=== PATIENT | female | born 1965 | race African-American/Black ===

== ENCOUNTER 2020-03-08 11:16 | Inpatient (IN) ==
[2020-03-08] MEDS ORDERED: SODIUM CHLORIDE 0.9% 1,000 ML IV SCH (13:30)
[2020-03-08] MEDS ORDERED: CEFUROXIME INJ 1,500 MG in SODIUM CHLORIDE 0.9% 100 ML IV ONE (13:30)
[2020-03-08] MEDS ORDERED: GLUCAGON 1 MG VIAL IM PRN (13:30)
[2020-03-08] MEDS ORDERED: DEXTROSE 50% 25 GM/50 ML VIAL IV PRN (13:30)
[2020-03-08] MEDS ORDERED: CLORAZEPATE 3.75 MG TABLET PO PRN (13:53)
[2020-03-08] MEDS ORDERED: ZALEPLON 5 MG CAPSULE PO PRN (13:53)
[2020-03-08] MEDS ORDERED: oxyCODONE/ACETAMINOPHEN 5-325 MG TABLET PO PRN (13:54)
[2020-03-08] MEDS ORDERED: MORPHINE 4 MG/1 ML VIAL IV PRN (13:54)
[2020-03-08] MEDS ORDERED: hydrALAZINE 20 MG/1 ML VIAL IV PRN (13:55)
[2020-03-08] MEDS ORDERED: NITROGLYCERIN SL 0.4 MG TABLET SL PRN (13:55)
[2020-03-08 15:49] LABS: Basophils % 0.9 % (0.0-0.8); Eosinophils # 0.2 10*3/uL (0.0-0.87); Eosinophils % 4.3 % (0.00-10.9); Hematocrit 38.3 VOL% (35.7-47.0); Hemoglobin 12.3 GM/DL (12.0-16.0); Immature Granulocytes % 0.7 %; Immature Granulocytes Absolute 0.03 #; Lymphocytes # 1.6 10*3/uL (1.4-4.0); Lymphocytes % 36.1 % (21.3-54.2); Mean Corpuscular HGB Conc 32.1 GM/DL (32-36); Mean Corpuscular Volume 93.6 FL (87-102); Mean Platelet Volume 9.7 FL (9.6-12.0); Platelet Count 299 T/CUMM (130-400); Red Blood Count 4.09 MC/CUMM (3.8-5.5); Red Cell Distribution Width 14.7 % (9.3-17.3); White Blood Count 4.5 T/CUMM (4-12)
[2020-03-08 16:02] LABS: Alanine Aminotransferase 32 U/L (13-56); Albumin 3.4 G/DL (3.4-5.0); Alkaline Phosphatase 89 U/L (45-117); Aspartate Amino Transferase 24 U/L (0-37); Bilirubin,Total < 0.39 MG/DL (0.2-1.0); Blood Urea Nitrogen 21 MG/DL (7-18); Calcium 9.2 MG/DL (8.5-10.1); Estimated Glom Filtration Rate 77 ML/MIN; Glucose 114 MG/DL (74-106); Osmolality,Calculated 282.4 MOS/KG (273-304); Total Protein 7.4 G/DL (6.4-8.3)
[2020-03-08] MEDS: CHLORHEXIDINE 4% SOLN 118 ML BOTTLE TOP SCH ×2 (16:36→20:38)
[2020-03-08 16:46] LABS: ABG Base Excess 4.5 MMOL/L (-2.5-2.5); ABG HCO3 28.4 MMOL/L (20-26); ABG Oxygen Saturation 97.7 % (95-100); ABG PCO2 40.3 MM HG (35-48); ABG PO2 89.9 MM HG (80-95); ABG TCO2 25.2 MMOL/L (23-27); Allen Test Positive; Pt O2 Delivery Device Room Air
[2020-03-08] MEDS: CHLORHEXIDINE 0.12% ORAL RINSE 60 ML BOTTLE SWISH/SPIT SCH (20:18)
[2020-03-09] MEDS: CHLORHEXIDINE 4% SOLN 118 ML BOTTLE TOP SCH ×2 (04:21→10:43)
[2020-03-09] MEDS ORDERED: PAPAVERINE 60 MG/2 ML VIAL ONE (04:22)
[2020-03-09] MEDS ORDERED: VANCOMYCIN 1,000 MG VIAL ONE (04:23)
[2020-03-09] MEDS ORDERED: VANCOMYCIN 500 MG VIAL ONE (04:23)
[2020-03-09] MEDS ORDERED: CALCIUM CHLORIDE 1,000 MG/10 ML VIAL IV ONE (05:57)
[2020-03-09] MEDS ORDERED: MIDAZOLAM 10 MG/2 ML VIAL ONE (05:57)
[2020-03-09] MEDS ORDERED: VECURONIUM 10 MG VIAL IV ONE (05:58)
[2020-03-09] MEDS ORDERED: AMINOCAPROIC ACID 5,000 MG/20 ML VIAL ONE (05:58)
[2020-03-09] MEDS ORDERED: SUFentanil 250 MCG/5 ML AMP ONE (05:58)
[2020-03-09] MEDS ORDERED: MINERAL OIL/PETROLATUM OPH OINT 3.5 GM TUBE ONE (05:58)
[2020-03-09] MEDS ORDERED: DIAZEPAM 5 MG TABLET PO ONE (06:00)
[2020-03-09] MEDS ORDERED: CEFUROXIME INJ 1,500 MG in SODIUM CHLORIDE 0.9% 100 ML IV ONE (06:00)
[2020-03-09] MEDS ORDERED: FAMOTIDINE 20 MG TABLET PO ONE (06:00)
[2020-03-09 07:45] LABS: ABG Base Excess 1.7 MMOL/L (-2.5-2.5); ABG PCO2 42.1 MM HG (35-48); ABG PH 7.408 (7.35-7.45); ABG TCO2 23.8 MMOL/L (23-27); Glucose Heart Surgery 128 MG/DL (74-106); Ionized Calcium Arterial 1.14 MMOL/L (1.21-1.46); PCO2 Patient Temp Arterial 42.1 MMHG; PH Patient Temp Arterial 7.408; Patient Temperature 37 CELCIUS; Potassium Heart/CVR 3.5 MMOL/L (3.5-5.1); Sodium Heart/CVR 139 MMOL/L (135-145)
[2020-03-09] MEDS ORDERED: PHENYLEPHRINE DRIP 40 MG/250 ML PREMIX IV ONE (08:01)
[2020-03-09 09:02] LABS: Apearance,Urine CLEAR (Clear); Bilirubin,Urine Negative (Negative); Blood, Urine Negative (Negative); Glucose,Urine (UA) Negative (Negative); Ketones,Urine Negative (Negative); Mucus,Urine Occasional /LPF (Occasional); Nitrite,Urine Negative (Negative); Protein,Urine Negative; RBC,Urine 4 /HPF (0-4); Urine Color Yellow (Yellow); Urine Specific Gravity 1.016 (1.001-1.035); Urine Urobilinogen < 2.0 EU/DL (0.2-1.0)
[2020-03-09 09:03] LABS: Hemoglobin Heart Surgery 7.2 G/DL (12.0-16.0); PCO2 Patient Temp Venous 33.5 MM HG; PH Patient Temp Venous 7.501; PO2 Patient Temp Venous 35.4 MM HG; VBG Base Excess 2.3 MEQ/L (0-4); VBG HCO3 26.1 MEQ/L (24-28); VBG Oxygen Saturation 76.9 %; VBG PCO2 36.6 MMHG (41-51); VBG PH 7.471; VBG PO2 40.8 MMHG (17-40)
[2020-03-09] MEDS ORDERED: FAMOTIDINE 20 MG/2 ML VIAL IV ONE (09:30)
[2020-03-09] MEDS ORDERED: diphenhydrAMINE 50 MG/1 ML VIAL ONE (09:30)
[2020-03-09 09:37] LABS: Hemoglobin Heart Surgery 8.1 G/DL (12.0-16.0); PCO2 Patient Temp Venous 36.6 MM HG; PH Patient Temp Venous 7.455; PO2 Patient Temp Venous 38.5 MM HG; VBG Base Excess 1.1 MEQ/L (0-4); VBG HCO3 25.6 MEQ/L (24-28); VBG Oxygen Saturation 79.2 %; VBG PCO2 39.9 MMHG (41-51); VBG PH 7.425; VBG PO2 44.3 MMHG (17-40)
[2020-03-09 10:01] LABS: ABG Base Excess -0.7 MMOL/L (-2.5-2.5); ABG HCO3 23.8 MMOL/L (20-26); ABG PCO2 37.8 MM HG (35-48); ABG PH 7.406 (7.35-7.45); Glucose Heart Surgery 232 MG/DL (74-106); Hematocrit Heart Surgery 26.2 PERCENT (37-47); Hemoglobin Heart Surgery 8.4 G/DL (12.0-16.0); Ionized Calcium Arterial 1.45 MMOL/L (1.21-1.46); PCO2 Patient Temp Arterial 37.8 MMHG; PH Patient Temp Arterial 7.406; Patient Temperature 37 CELCIUS; Potassium Heart/CVR 3.3 MMOL/L (3.5-5.1); Sodium Heart/CVR 134 MMOL/L (135-145)
[2020-03-09] MEDS ORDERED: SODIUM BICARBONATE 50 MEQ/50 ML VIAL IV ONE (10:03)
[2020-03-09] MEDS ORDERED: DEXTROSE 5% KCL 20 MEQ 20 MEQ/1,000 ML BAG IV ONE (10:03)
[2020-03-09] MEDS ORDERED: HEPARIN 10,000 UNIT/10 ML VIAL ONE (10:03)
[2020-03-09] MEDS ORDERED: PROTAMINE SULFATE 250 MG/25 ML VIAL IV ONE (10:03)
[2020-03-09] MEDS ORDERED: MANNITOL 100 GM/500 ML BAG IV ONE (10:03)
[2020-03-09] MEDS ORDERED: MAGNESIUM SULFATE 5 GM/10 ML VIAL IV ONE (10:03)
[2020-03-09] MEDS ORDERED: LIDOCAINE 2% 5 ML VIAL ONE ×2 (10:03→10:40)
[2020-03-09] MEDS ORDERED: ALBUMIN 25% 25 GM/100 ML VIAL IV ONE (10:03)
[2020-03-09] MEDS ORDERED: FUROSEMIDE 20 MG/2 ML VIAL ONE (10:04)
[2020-03-09] MEDS ORDERED: methylPREDNISolone SOD SUC 1,000 MG/8 ML VIAL ONE (10:04)
[2020-03-09] MEDS ORDERED: PROTAMINE SULFATE 50 MG/5 ML VIAL IV ONE (10:04)
[2020-03-09] MEDS ORDERED: MAGNESIUM SULF RIDER 2 GM in PREMIX 1 EACH IV PRN (10:38)
[2020-03-09] MEDS ORDERED: INSULIN REGULAR DRIP 100 ML IV SCH (10:38)
[2020-03-09] MEDS ORDERED: ONDANSETRON 4 MG/2 ML VIAL IV PRN (10:38)
[2020-03-09] MEDS ORDERED: MORPHINE 4 MG/1 ML VIAL IV PRN (10:38)
[2020-03-09] MEDS ORDERED: ALBUMIN 5% 12.5 GM in PREMIX 1 EACH IV PRN (10:38)
[2020-03-09] MEDS ORDERED: INSULIN REGULAR 100 UNIT/ML IV ONE (10:38)
[2020-03-09] MEDS ORDERED: MIDAZOLAM 10 MG/2 ML VIAL IV PRN (10:38)
[2020-03-09] MEDS ORDERED: PHENYLEPHRINE DRIP 40 MG/250 ML PREMIX IV PRN (10:38)
[2020-03-09] MEDS ORDERED: SODIUM CHLORIDE 0.45% 1,000 ML IV SCH ×2 (10:38)
[2020-03-09] MEDS ORDERED: MIDAZOLAM 2 MG/2 ML VIAL IV PRN (10:38)
[2020-03-09] MEDS ORDERED: CHLORHEXIDINE 4% SOLN 118 ML BOTTLE TOP PRN (10:38)
[2020-03-09] MEDS ORDERED: NITROPRUSSIDE 100 MG in DEXTROSE 5% 250 ML IV PRN (10:38)
[2020-03-09] MEDS ORDERED: LACTATED RINGERS 250 ML IV PRN (10:38)
[2020-03-09] MEDS ORDERED: MAGNESIUM SULF RIDER 4 GM in PREMIX 1 EACH IV PRN (10:38)
[2020-03-09] MEDS ORDERED: DEXTROSE 10% 250 ML BAG IV PRN ×2 (10:38)
[2020-03-09] MEDS ORDERED: CALCIUM CHLORIDE 1,000 MG/10 ML SYRINGE IV PRN (10:38)
[2020-03-09] MEDS ORDERED: VECURONIUM 10 MG VIAL IV PRN ×2 (10:38)
[2020-03-09] MEDS ORDERED: SODIUM CHLORIDE 0.9% 250 ML IV ONE (10:40)
[2020-03-09] MEDS ORDERED: SEVOFLURANE 1 UNIT/15 MINUTE INH ONE (10:40)
[2020-03-09] MEDS ORDERED: SODIUM CHLORIDE 0.9% 100 ML IV ONE (10:40)
[2020-03-09] MEDS ORDERED: ETOMIDATE 40 MG/20 ML VIAL IV ONE (10:40)
[2020-03-09] MEDS ORDERED: SODIUM CHLORIDE 0.9% 1,000 ML IV ONE (10:40)
[2020-03-09] MEDS ORDERED: HEPARIN/NACL 0.9% 2 UNITS/ML 500 ML IV ONE (10:40)
[2020-03-09] MEDS ORDERED: PHENYLEPHRINE DRIP 20 MG/250 ML PREMIX IV ONE (10:40)
[2020-03-09] MEDS ORDERED: IBUPROFEN 100 MG/5 ML UDCUP PO PRN (11:09)
[2020-03-09 11:13] LABS: ABG Base Excess -0.8 MMOL/L (-2.5-2.5); ABG HCO3 23.8 MMOL/L (20-26); ABG Oxygen Saturation 98.9 % (95-100); ABG PCO2 46.6 MM HG (35-48); ABG PH 7.341 (7.35-7.45); ABG TCO2 23.3 MMOL/L (23-27); Glucose Heart Surgery 169 MG/DL (74-106); Hematocrit Heart Surgery 28.7 PERCENT (37-47); Hemoglobin Heart Surgery 9.3 G/DL (12.0-16.0); Potassium Heart/CVR 3.6 MMOL/L (3.5-5.1)
[2020-03-09] MEDS: POTASSIUM CHLORIDE RIDER 20 MEQ in PREMIX 1 EACH IV PRN ×3 (11:21→22:13)
[2020-03-09 11:25] LABS: Basophils % 0.3 % (0.0-0.8); Eosinophils # 0.1 10*3/uL (0.0-0.87); Immature Granulocytes % 1.2 %; Immature Granulocytes Absolute 0.11 #; Lymphocytes # 1.6 10*3/uL (1.4-4.0); Lymphocytes % 17.1 % (21.3-54.2); Mean Corpuscular HGB Conc 32.9 GM/DL (32-36); Mean Corpuscular Volume 92.1 FL (87-102); Mean Platelet Volume 9.8 FL (9.6-12.0); Monocytes % 4.8 % (1.7-12.7); Neutrophils % 75.6 % (38.7-73.9); Red Cell Distribution Width 14.6 % (9.3-17.3)
[2020-03-09 11:27] LABS: Hemoglobin 9.2 GM/DL (12.0-16.0); Platelet Count 222 T/CUMM (130-400); Red Blood Count 3.04 MC/CUMM (3.8-5.5); White Blood Count 9.5 T/CUMM (4-12)
[2020-03-09 11:29] LABS: INR 1.1; PT Patient Result 11.7 SECS (9.8-11.9); Partial Thromboplastin Time 28.2 SECS (23.9-33.8)
[2020-03-09 11:40] LABS: CKMB % 6.2 %
[2020-03-09 11:44] LABS: Albumin 2.8 G/DL (3.4-5.0); Bilirubin,Total 0.7 MG/DL (0.2-1.0); Calcium 9.6 MG/DL (8.5-10.1); Osmolality,Calculated 279.7 MOS/KG (273-304); Total Protein 5.6 G/DL (6.4-8.3)
[2020-03-09 11:46] LABS: Troponin I 5.26 NG/ML (0.00-0.045)
[2020-03-09] MEDS: POTASSIUM CHLORIDE RIDER 10 MEQ in PREMIX 1 EACH IV PRN ×2 (12:43→19:15)
[2020-03-09] MEDS: LACTATED RINGERS 1,000 ML IV PRN ×4 (13:01→18:40)
[2020-03-09 13:26] LABS: ABG HCO3 23.6 MMOL/L (20-26); ABG Oxygen Saturation 98.8 % (95-100); ABG PCO2 48.8 MM HG (35-48); ABG PH 7.327 (7.35-7.45); ABG TCO2 22.9 MMOL/L (23-27); Glucose Heart Surgery 121 MG/DL (74-106); Hematocrit Heart Surgery 36.1 PERCENT (37-47); Hemoglobin Heart Surgery 11.7 G/DL (12.0-16.0); Potassium Heart/CVR 3.9 MMOL/L (3.5-5.1)
[2020-03-09 14:31] LABS: ABG Base Excess -0.5 MMOL/L (-2.5-2.5); ABG Oxygen Saturation 98.1 % (95-100); ABG PCO2 42.2 MM HG (35-48); ABG PH 7.375 (7.35-7.45); ABG TCO2 22.1 MMOL/L (23-27); Glucose Heart Surgery 122 MG/DL (74-106); Hematocrit Heart Surgery 35.4 PERCENT (37-47); Hemoglobin Heart Surgery 11.5 G/DL (12.0-16.0); Potassium Heart/CVR 3.7 MMOL/L (3.5-5.1)
[2020-03-09] MEDS: CHLORHEXIDINE 0.12% ORAL RINSE 60 ML BOTTLE SWISH/SPIT SCH ×2 (14:45→22:20)
[2020-03-09 15:31] LABS: ABG Base Excess -0.5 MMOL/L (-2.5-2.5); ABG Oxygen Saturation 98.2 % (95-100); ABG PCO2 40.7 MM HG (35-48); ABG PH 7.386 (7.35-7.45); ABG TCO2 21.9 MMOL/L (23-27); Glucose Heart Surgery 134 MG/DL (74-106); Hematocrit Heart Surgery 34.2 PERCENT (37-47); Hemoglobin Heart Surgery 11.1 G/DL (12.0-16.0); Potassium Heart/CVR 4.1 MMOL/L (3.5-5.1)
[2020-03-09] MEDS: MORPHINE 10 MG/1 ML VIAL IV PRN ×2 (16:55→19:35)
[2020-03-09 18:24] LABS: ABG Base Excess -1.5 MMOL/L (-2.5-2.5); ABG HCO3 23.2 MMOL/L (20-26); ABG Oxygen Saturation 98.8 % (95-100); ABG PCO2 40.3 MM HG (35-48); ABG PH 7.375 (7.35-7.45); ABG TCO2 21.3 MMOL/L (23-27); Glucose Heart Surgery 148 MG/DL (74-106); Hematocrit Heart Surgery 33.3 PERCENT (37-47); Hemoglobin Heart Surgery 10.8 G/DL (12.0-16.0); Potassium Heart/CVR 3.8 MMOL/L (3.5-5.1)
[2020-03-09] MEDS: INSULIN REGULAR 100 UNIT/ML IV PRN (18:31)
[2020-03-09] MEDS: CEFUROXIME INJ 1,500 MG in SYRINGE 1 EACH IV SCH (18:33)
[2020-03-09] MEDS ORDERED: FUROSEMIDE 40 MG/4 ML VIAL IV PRN (19:42)
[2020-03-09 22:06] LABS: ABG Base Excess -2.7 MMOL/L (-2.5-2.5); ABG HCO3 22.1 MMOL/L (20-26); ABG Oxygen Saturation 98.1 % (95-100); ABG PCO2 38.4 MM HG (35-48); ABG TCO2 19.9 MMOL/L (23-27); Glucose Heart Surgery 146 MG/DL (74-106); Hematocrit Heart Surgery 34.4 PERCENT (37-47); Hemoglobin Heart Surgery 11.1 G/DL (12.0-16.0)
[2020-03-10] MEDS: MORPHINE 10 MG/1 ML VIAL IV PRN ×2 (00:01→00:05)
[2020-03-10] MEDS: INSULIN REGULAR 100 UNIT/ML IV PRN (02:28)
[2020-03-10 02:29] LABS: ABG Base Excess -1.8 MMOL/L (-2.5-2.5); ABG HCO3 22.9 MMOL/L (20-26); ABG Oxygen Saturation 98.4 % (95-100); ABG PCO2 36.6 MM HG (35-48); ABG PH 7.399 (7.35-7.45); ABG TCO2 20.2 MMOL/L (23-27); Glucose Heart Surgery 154 MG/DL (74-106); Hematocrit Heart Surgery 35.4 PERCENT (37-47); Hemoglobin Heart Surgery 11.5 G/DL (12.0-16.0); Potassium Heart/CVR 3.8 MMOL/L (3.5-5.1)
[2020-03-10] MEDS ORDERED: NITROPRUSSIDE 50 MG/2 ML VIAL ONE (02:34)
[2020-03-10] MEDS: POTASSIUM CHLORIDE RIDER 20 MEQ in PREMIX 1 EACH IV PRN (03:00)
[2020-03-10] MEDS ORDERED: hydrALAZINE 20 MG/1 ML VIAL IV PRN (03:30)
[2020-03-10] MEDS ORDERED: carvediloL 25 MG TABLET PO ONE (03:30)
[2020-03-10] MEDS: POTASSIUM CHLORIDE RIDER 10 MEQ in PREMIX 1 EACH IV PRN (03:33)
[2020-03-10] MEDS: KETOROLAC 15 MG/1 ML VIAL IV PRN ×3 (03:50→20:04)
[2020-03-10 04:14] LABS: ABG Base Excess -1.8 MMOL/L (-2.5-2.5); ABG HCO3 22.9 MMOL/L (20-26); ABG Oxygen Saturation 98.8 % (95-100); ABG PCO2 33.4 MM HG (35-48); ABG PH 7.425 (7.35-7.45); ABG TCO2 19.6 MMOL/L (23-27); Glucose Heart Surgery 149 MG/DL (74-106); Hematocrit Heart Surgery 34.6 PERCENT (37-47); Hemoglobin Heart Surgery 11.2 G/DL (12.0-16.0); Potassium Heart/CVR 4.5 MMOL/L (3.5-5.1)
[2020-03-10 04:40] LABS: Basophils % 0.2 % (0.0-0.8); Hematocrit 34.1 VOL% (35.7-47.0); Immature Granulocytes % 0.6 %; Immature Granulocytes Absolute 0.08 #; Lymphocytes # 1.1 10*3/uL (1.4-4.0); Lymphocytes % 8.2 % (21.3-54.2); Mean Corpuscular HGB Conc 33.1 GM/DL (32-36); Monocytes % 4.2 % (1.7-12.7); Neutrophils % 86.8 % (38.7-73.9); Platelet Count 238 T/CUMM (130-400); Red Cell Distribution Width 14.6 % (9.3-17.3)
[2020-03-10 04:43] LABS: White Blood Count 13.2 T/CUMM (4-12)
[2020-03-10 04:44] LABS: Hemoglobin 11.3 GM/DL (12.0-16.0); Red Blood Count 3.79 MC/CUMM (3.8-5.5)
[2020-03-10 05:08] LABS: Albumin 3.1 G/DL (3.4-5.0); Bilirubin,Direct 0.11 MG/DL (0.0-0.20); Bilirubin,Total 0.6 MG/DL (0.2-1.0); Calcium 8.8 MG/DL (8.5-10.1); Osmolality,Calculated 281.5 MOS/KG (273-304); Total Protein 6.2 G/DL (6.4-8.3)
[2020-03-10 05:11] LABS: CKMB % 10.7 %
[2020-03-10 05:20] LABS: Troponin I 11.7 NG/ML (0.00-0.045)
[2020-03-10] MEDS: CEFUROXIME INJ 1,500 MG in SYRINGE 1 EACH IV SCH ×2 (05:44→17:56)
[2020-03-10 06:42] LABS: ABG HCO3 23.5 MMOL/L (20-26); ABG Oxygen Saturation 98.2 % (95-100); ABG PCO2 35.6 MM HG (35-48); ABG PH 7.418 (7.35-7.45); ABG TCO2 20.6 MMOL/L (23-27); Glucose Heart Surgery 155 MG/DL (74-106); Hematocrit Heart Surgery 34.4 PERCENT (37-47); Hemoglobin Heart Surgery 11.1 G/DL (12.0-16.0)
[2020-03-10] MEDS ORDERED: SODIUM CHLOR 0.45% KCL 20 MEQ 20 MEQ/1,000 ML BAG IV SCH ×2 (07:30→11:19)
[2020-03-10 07:36] LABS: ABG Base Excess -1.1 MMOL/L (-2.5-2.5); ABG HCO3 23.5 MMOL/L (20-26); ABG Oxygen Saturation 95.8 % (95-100); ABG PCO2 35.7 MM HG (35-48); ABG PH 7.417 (7.35-7.45); ABG PO2 77.7 MM HG (80-95); ABG TCO2 20.6 MMOL/L (23-27); Glucose Heart Surgery 142 MG/DL (74-106); Hematocrit Heart Surgery 34.6 PERCENT (37-47); Hemoglobin Heart Surgery 11.2 G/DL (12.0-16.0)
[2020-03-10] MEDS ORDERED: INSULIN REGULAR 100 UNIT/ML SUBCUT SCH (08:00)
[2020-03-10] MEDS: carvediloL 25 MG TABLET PO SCH ×2 (08:24→20:05)
[2020-03-10] MEDS: CHLORHEXIDINE 0.12% ORAL RINSE 60 ML BOTTLE SWISH/SPIT SCH ×3 (08:24→20:12)
[2020-03-10] MEDS ORDERED: ALUMINUM/MAGNES/SIMETH MAX STR 30 ML UDCUP PO PRN (11:19)
[2020-03-10] MEDS ORDERED: ZALEPLON 5 MG CAPSULE PO PRN (11:19)
[2020-03-10] MEDS ORDERED: GLUCAGON 1 MG VIAL IM PRN (11:19)
[2020-03-10] MEDS ORDERED: MAGNESIUM SULF RIDER 2 GM in PREMIX 1 EACH IV PRN (11:19)
[2020-03-10] MEDS ORDERED: MAGNESIUM SULF RIDER 4 GM in PREMIX 1 EACH IV PRN (11:19)
[2020-03-10] MEDS ORDERED: MAGNESIUM HYDROXIDE SUSP 30 ML UDCUP PO PRN (11:19)
[2020-03-10] MEDS ORDERED: DEXTROSE 50% 25 GM/50 ML VIAL IV PRN (11:19)
[2020-03-10 12:17] LABS: CKMB % 10.1 %
[2020-03-10 12:19] LABS: Troponin I 19.1 NG/ML (0.00-0.045)
[2020-03-10] MEDS: PANTOPRAZOLE 40 MG TABLET PO SCH (12:25)
[2020-03-10] MEDS: DOCUSATE SODIUM 100 MG CAPSULE PO SCH (12:25)
[2020-03-10] MEDS: FERROUS SULFATE 325 MG TABLET PO SCH (12:25)
[2020-03-10] MEDS: ASPIRIN EC 325 MG TABLET PO SCH (12:25)
[2020-03-10] MEDS: INSULIN REGULAR 100 UNIT/ML SUBCUT SCH ×2 (16:14→22:34)
[2020-03-10] MEDS ORDERED: AMIODARONE INJ 150 MG in DEXTROSE 5% 100 ML IV ONE (17:25)
[2020-03-10] MEDS ORDERED: DILTIAZEM 50 MG/10 ML VIAL IV ONE (17:26)
[2020-03-10] MEDS ORDERED: dilTIAZem Drip 125 MG/125 ML PREMIX IV SCH (17:30)
[2020-03-10] MEDS ORDERED: AMIODARONE INJ 450 MG in DEXTROSE 5% 241 ML IV SCH ×2 (17:30→23:30)
[2020-03-10] MEDS: ATORVASTATIN 40 MG TABLET PO SCH (20:06)
[2020-03-10] MEDS: HYDROmorphone 2 MG TABLET PO PRN (20:09)
[2020-03-11] MEDS: INSULIN REGULAR 100 UNIT/ML SUBCUT SCH ×6 (00:51→20:59)
[2020-03-11] MEDS: KETOROLAC 15 MG/1 ML VIAL IV PRN (05:41)
[2020-03-11] MEDS ORDERED: FUROSEMIDE 40 MG/4 ML VIAL IV ONE (06:00)
[2020-03-11 06:46] LABS: Basophils % 0.1 % (0.0-0.8); Hematocrit 31.2 VOL% (35.7-47.0); Hemoglobin 10.2 GM/DL (12.0-16.0); Immature Granulocytes % 0.7 %; Immature Granulocytes Absolute 0.12 #; Lymphocytes # 1.1 10*3/uL (1.4-4.0); Lymphocytes % 6.6 % (21.3-54.2); Mean Corpuscular HGB Conc 32.7 GM/DL (32-36); Mean Corpuscular Volume 91.2 FL (87-102); Mean Platelet Volume 10.4 FL (9.6-12.0); Monocytes % 6.2 % (1.7-12.7); Neutrophils % 86.4 % (38.7-73.9); Platelet Count 229 T/CUMM (130-400); Red Blood Count 3.42 MC/CUMM (3.8-5.5); Red Cell Distribution Width 15.4 % (9.3-17.3); White Blood Count 17.2 T/CUMM (4-12)
[2020-03-11 06:52] LABS: Albumin 2.8 G/DL (3.4-5.0); Bilirubin,Direct 0.12 MG/DL (0.0-0.20); Bilirubin,Total 0.8 MG/DL (0.2-1.0); Calcium 8.5 MG/DL (8.5-10.1); Osmolality,Calculated 280.8 MOS/KG (273-304); Total Protein 6.2 G/DL (6.4-8.3)
[2020-03-11 06:55] LABS: Albumin 2.9 G/DL (3.4-5.0); Bilirubin,Direct 0.15 MG/DL (0.0-0.20); Bilirubin,Indirect 2.3 MG/DL (0.0-1.0); Bilirubin,Total 2.4 MG/DL (0.2-1.0); CKMB % 6.3 %; Total Protein 5.9 G/DL (6.4-8.3)
[2020-03-11 06:57] LABS: Troponin I 28.7 NG/ML (0.00-0.045)
[2020-03-11] MEDS: PANTOPRAZOLE 40 MG TABLET PO SCH (08:59)
[2020-03-11] MEDS: ASPIRIN EC 325 MG TABLET PO SCH (08:59)
[2020-03-11] MEDS: DOCUSATE SODIUM 100 MG CAPSULE PO SCH (08:59)
[2020-03-11] MEDS: FERROUS SULFATE 325 MG TABLET PO SCH (08:59)
[2020-03-11] MEDS: amLODIPine 10 MG TABLET PO SCH (08:59)
[2020-03-11] MEDS: ATORVASTATIN 40 MG TABLET PO SCH (08:59)
[2020-03-11] MEDS: carvediloL 25 MG TABLET PO SCH ×2 (08:59→21:00)
[2020-03-11] MEDS: hydroCHLOROthiazide 25 MG TABLET PO SCH (08:59)
[2020-03-11] MEDS: CHLORHEXIDINE 0.12% ORAL RINSE 60 ML BOTTLE SWISH/SPIT SCH ×2 (09:04→21:00)
[2020-03-11 10:43] LABS: CKMB % 5.1 %
[2020-03-11 10:45] LABS: Troponin I 19.8 NG/ML (0.00-0.045)
[2020-03-11] MEDS ORDERED: AMIODARONE 200 MG TABLET PO ONE (13:19)
[2020-03-11] MEDS: HYDROmorphone 2 MG TABLET PO PRN (20:59)
[2020-03-12] MEDS: INSULIN REGULAR 100 UNIT/ML SUBCUT SCH ×6 (00:30→21:42)
[2020-03-12] MEDS: HYDROmorphone 2 MG TABLET PO PRN ×2 (06:19→19:47)
[2020-03-12 06:52] LABS: Basophils % 0.1 % (0.0-0.8); Hematocrit 28.8 VOL% (35.7-47.0); Hemoglobin 9.6 GM/DL (12.0-16.0); Immature Granulocytes % 1.3 %; Immature Granulocytes Absolute 0.19 #; Lymphocytes # 1.7 10*3/uL (1.4-4.0); Lymphocytes % 11.9 % (21.3-54.2); Mean Corpuscular HGB Conc 33.3 GM/DL (32-36); Mean Corpuscular Volume 89.7 FL (87-102); Mean Platelet Volume 10.3 FL (9.6-12.0); Monocytes % 9.4 % (1.7-12.7); Neutrophils % 77.3 % (38.7-73.9); Platelet Count 228 T/CUMM (130-400); Red Blood Count 3.21 MC/CUMM (3.8-5.5); Red Cell Distribution Width 15.2 % (9.3-17.3); White Blood Count 14.5 T/CUMM (4-12)
[2020-03-12 07:14] LABS: Alanine Aminotransferase 37 U/L (13-56); Albumin 2.6 G/DL (3.4-5.0); Alkaline Phosphatase 59 U/L (45-117); Aspartate Amino Transferase 51 U/L (0-37); Bilirubin,Direct < 0.100 MG/DL (0.0-0.20); Blood Urea Nitrogen 28 MG/DL (7-18); Calcium 8.1 MG/DL (8.5-10.1); Estimated Glom Filtration Rate 78 ML/MIN; Glucose 137 MG/DL (74-106); Osmolality,Calculated 288.3 MOS/KG (273-304); Total Protein 6.2 G/DL (6.4-8.3)
[2020-03-12 07:15] LABS: Albumin 2.7 G/DL (3.4-5.0); Bilirubin,Direct 0.13 MG/DL (0.0-0.20); Bilirubin,Indirect 1.2 MG/DL (0.0-1.0); Bilirubin,Total 1.3 MG/DL (0.2-1.0); Total Protein 6.1 G/DL (6.4-8.3)
[2020-03-12 07:17] LABS: CKMB % 1.7 %
[2020-03-12 07:19] LABS: Troponin I 12.6 NG/ML (0.00-0.045)
[2020-03-12] MEDS: DOCUSATE SODIUM 100 MG CAPSULE PO SCH (09:40)
[2020-03-12] MEDS: ATORVASTATIN 40 MG TABLET PO SCH (09:40)
[2020-03-12] MEDS: AMIODARONE 200 MG TABLET PO SCH ×2 (09:40→21:41)
[2020-03-12] MEDS: hydroCHLOROthiazide 25 MG TABLET PO SCH (09:40)
[2020-03-12] MEDS: amLODIPine 10 MG TABLET PO SCH (09:40)
[2020-03-12] MEDS: FERROUS SULFATE 325 MG TABLET PO SCH (09:40)
[2020-03-12] MEDS: ASPIRIN EC 325 MG TABLET PO SCH (09:40)
[2020-03-12] MEDS: carvediloL 25 MG TABLET PO SCH ×2 (09:41→21:42)
[2020-03-12] MEDS: CHLORHEXIDINE 0.12% ORAL RINSE 60 ML BOTTLE SWISH/SPIT SCH ×2 (09:41→21:42)
[2020-03-12] MEDS: PANTOPRAZOLE 40 MG TABLET PO SCH (09:41)
[2020-03-12] MEDS ORDERED: ALBUTEROL/IPRATROPIUM 3 ML NEB RESP TX PRN (22:03)
[2020-03-12] MEDS ORDERED: FUROSEMIDE 40 MG/4 ML VIAL IV ONE (22:03)
[2020-03-13] MEDS: HYDROmorphone 2 MG TABLET PO PRN ×3 (00:57→20:41)
[2020-03-13] MEDS: INSULIN REGULAR 100 UNIT/ML SUBCUT SCH ×3 (07:17→17:19)
[2020-03-13] MEDS ORDERED: FUROSEMIDE 40 MG/4 ML VIAL IV ONE (08:22)
[2020-03-13] MEDS: ASPIRIN EC 325 MG TABLET PO SCH (08:42)
[2020-03-13] MEDS: ATORVASTATIN 40 MG TABLET PO SCH (08:43)
[2020-03-13] MEDS: PANTOPRAZOLE 40 MG TABLET PO SCH (08:43)
[2020-03-13] MEDS: hydroCHLOROthiazide 25 MG TABLET PO SCH (08:43)
[2020-03-13] MEDS: DOCUSATE SODIUM 100 MG CAPSULE PO SCH (08:43)
[2020-03-13] MEDS: amLODIPine 10 MG TABLET PO SCH (08:43)
[2020-03-13] MEDS: carvediloL 25 MG TABLET PO SCH ×2 (08:43→20:41)
[2020-03-13] MEDS ORDERED: POLYETHYLENE GLYCOL POWDER 17 GM PACK PO SCH (09:00)
[2020-03-13] MEDS: FERROUS SULFATE 325 MG TABLET PO SCH (09:02)
[2020-03-13] MEDS: AMIODARONE 200 MG TABLET PO SCH ×2 (09:04→20:41)
[2020-03-13] MEDS: CHLORHEXIDINE 0.12% ORAL RINSE 60 ML BOTTLE SWISH/SPIT SCH ×2 (09:08→20:41)
[2020-03-13] MEDS: ONDANSETRON 4 MG/2 ML VIAL IV PRN (10:57)
[2020-03-14 06:01] LABS: Alanine Aminotransferase 33 U/L (13-56); Albumin 2.6 G/DL (3.4-5.0); Alkaline Phosphatase 80 U/L (45-117); Aspartate Amino Transferase 26 U/L (0-37); Bilirubin,Indirect 0.5 MG/DL (0.0-1.0); Blood Urea Nitrogen 22 MG/DL (7-18); Calcium 8.3 MG/DL (8.5-10.1); Estimated Glom Filtration Rate 77 ML/MIN; Glucose 125 MG/DL (74-106); Osmolality,Calculated 278.7 MOS/KG (273-304); Total Protein 6.5 G/DL (6.4-8.3)
[2020-03-14 06:32] LABS: Basophils % 0.5 % (0.0-0.8); Eosinophils # 0.3 10*3/uL (0.0-0.87); Eosinophils % 3.2 % (0.00-10.9); Hematocrit 33.3 VOL% (35.7-47.0); Hemoglobin 10.5 GM/DL (12.0-16.0); Immature Granulocytes % 4.1 %; Immature Granulocytes Absolute 0.34 #; Lymphocytes # 1.9 10*3/uL (1.4-4.0); Lymphocytes % 22.6 % (21.3-54.2); Mean Corpuscular HGB Conc 31.5 GM/DL (32-36); Mean Corpuscular Volume 93.5 FL (87-102); Mean Platelet Volume 9.9 FL (9.6-12.0); Monocytes % 11.4 % (1.7-12.7); NRBC # 0.04 10*3/uL; Neutrophils % 58.2 % (38.7-73.9); Platelet Count 288 T/CUMM (130-400); Red Blood Count 3.56 MC/CUMM (3.8-5.5); Red Cell Distribution Width 14.6 % (9.3-17.3); White Blood Count 8.3 T/CUMM (4-12)
[2020-03-14] MEDS: DOCUSATE SODIUM 100 MG CAPSULE PO SCH (08:24)
[2020-03-14] MEDS: PANTOPRAZOLE 40 MG TABLET PO SCH (08:24)
[2020-03-14] MEDS: FERROUS SULFATE 325 MG TABLET PO SCH (08:24)
[2020-03-14] MEDS: ATORVASTATIN 40 MG TABLET PO SCH (08:24)
[2020-03-14] MEDS: ASPIRIN EC 325 MG TABLET PO SCH (08:25)
[2020-03-14] MEDS: carvediloL 25 MG TABLET PO SCH ×2 (08:25→21:07)
[2020-03-14] MEDS: amLODIPine 10 MG TABLET PO SCH (08:25)
[2020-03-14] MEDS: CHLORHEXIDINE 0.12% ORAL RINSE 60 ML BOTTLE SWISH/SPIT SCH ×2 (08:25→21:08)
[2020-03-14] MEDS: AMIODARONE 200 MG TABLET PO SCH ×2 (08:25→21:07)
[2020-03-14] MEDS: hydroCHLOROthiazide 25 MG TABLET PO SCH (08:25)
[2020-03-14] MEDS: HYDROmorphone 2 MG TABLET PO PRN ×2 (08:33→21:07)
[2020-03-14] MEDS: POTASSIUM CHLORIDE 20 MEQ TABLET PO PRN (09:22)
[2020-03-14] MEDS: ONDANSETRON 4 MG/2 ML VIAL IV PRN (10:54)
[2020-03-15 05:43] LABS: Basophils % 0.2 % (0.0-0.8); Eosinophils # 0.3 10*3/uL (0.0-0.87); Eosinophils % 3.2 % (0.00-10.9); Hematocrit 31.3 VOL% (35.7-47.0); Immature Granulocytes % 3.4 %; Immature Granulocytes Absolute 0.29 #; Lymphocytes # 2.1 10*3/uL (1.4-4.0); Mean Corpuscular HGB Conc 31.9 GM/DL (32-36); Mean Corpuscular Volume 94.3 FL (87-102); Mean Platelet Volume 9.9 FL (9.6-12.0); Neutrophils % 59.2 % (38.7-73.9); Platelet Count 293 T/CUMM (130-400); Red Blood Count 3.32 MC/CUMM (3.8-5.5); Red Cell Distribution Width 14.5 % (9.3-17.3); White Blood Count 8.6 T/CUMM (4-12)
[2020-03-15 06:15] LABS: Alanine Aminotransferase 24 U/L (13-56); Albumin 2.4 G/DL (3.4-5.0); Alkaline Phosphatase 78 U/L (45-117); Aspartate Amino Transferase 19 U/L (0-37); Bilirubin,Direct < 0.100 MG/DL (0.0-0.20); Bilirubin,Indirect 1.7 MG/DL (0.0-1.0); Blood Urea Nitrogen 20 MG/DL (7-18); Calcium 8.3 MG/DL (8.5-10.1); Estimated Glom Filtration Rate 77 ML/MIN; Glucose 131 MG/DL (74-106); Osmolality,Calculated 277.8 MOS/KG (273-304)
[2020-03-15 08:27] VITALS: BP 120/63
[2020-03-15] MEDS: amLODIPine 10 MG TABLET PO SCH (08:37)
[2020-03-15] MEDS: PANTOPRAZOLE 40 MG TABLET PO SCH (08:37)
[2020-03-15] MEDS: DOCUSATE SODIUM 100 MG CAPSULE PO SCH (08:38)
[2020-03-15] MEDS: carvediloL 25 MG TABLET PO SCH (08:38)
[2020-03-15] MEDS: AMIODARONE 200 MG TABLET PO SCH (08:38)
[2020-03-15] MEDS: FERROUS SULFATE 325 MG TABLET PO SCH (08:38)
[2020-03-15] MEDS: hydroCHLOROthiazide 25 MG TABLET PO SCH (08:38)
[2020-03-15] MEDS: POTASSIUM CHLORIDE 20 MEQ TABLET PO PRN (08:38)
[2020-03-15] MEDS: ASPIRIN EC 325 MG TABLET PO SCH (08:38)
[2020-03-15] MEDS: ATORVASTATIN 40 MG TABLET PO SCH (08:39)
[2020-03-15] MEDS: CHLORHEXIDINE 0.12% ORAL RINSE 60 ML BOTTLE SWISH/SPIT SCH (08:41)
== END 2020-03-15 13:26 | disposition home or self-care (01) | DRG 236 ==
LOC: N.4E 14:45 → N.CVR 03-09 10:23 → N.TELES 03-10 11:31